=== PATIENT | male | born 1960 | race Caucasian/White ===

== ENCOUNTER 2019-07-17 10:14 | Emergency (ER) | payer SELFPAY ==
[2019-07-17] VITALS (8 sets, daily range): BP systolic 193–248; BP diastolic 111–168; PULSE 67–105; RESP 14–26; TEMP 36.6; O2SAT 95–100; BMI 22.8
--- NOTE | 2019-07-17 10:18 | EKG12_ITS ---
Test Reason : Blood Pressure : / mmHG Vent. Rate : 083 BPM Atrial Rate : 083 BPM P-R Int : 122 ms QRS Dur : 072 ms QT Int : 374 ms P-R-T Axes : 081 103 078 degrees QTc Int : 439 ms Normal sinus rhythm with sinus arrhythmia Biatrial enlargement Rightward axis Pulmonary disease pattern Abnormal ECG Confirmed by RENUKA MARCOS ([id number]), news assignment editor NISIH MILIAN ([id number]) on 07/21/2019 11:04:53 AM Referred By: RAMILA Confirmed By:RENUKA MARCOS
--- NOTE | 2019-07-17 10:18 | CT_ITS ---
STUDY: CT BRAIN WITHOUT CONTRAST REASON FOR EXAM: Male, 59 years old. Unresponsive RADIATION DOSAGE (If Supplied By Facility): CTDIvol = ( 44.99 ) mGy, DLP = ( 796.11 ) mGycm TECHNIQUE: Transaxial CT imaging of the brain was performed without administration of intravenous contrast material. Individualized dose optimization techniques were used for this CT. COMPARISON: No relevant priors. FINDINGS: Normal soft tissue structures. Normal calvarium. There is evidence of hydrocephalus. Intraventricular hemorrhage seen within the lateral ventricles as well as the third ventricle and the fourth ventricle as well. A small amount of acute blood is seen within the interhemispheric fissure anteriorly. Normal basal ganglia and thalami. Normal brainstem. Normal cerebellum. There is no intracranial hemorrhage. There are no findings of an acute ischemic infarction. Atherosclerotic calcification of the cavernous portions of the internal carotid arteries bilaterally. Normal visualized paranasal sinuses. CT/Brain/Head without Contrast IMPRESSION: Intraventricular hemorrhage as described causing hydrocephalus. I also suspect a small amount of blood in the interhemispheric fissure anteriorly. N.B. : The above information has been verbally conveyed by Yo Braden to Ryan Blankenship on 07/17/2019 10:38:47 (ET). Electronically Signed: Yo Braden, at 10:39 EDT , Service support ,
--- NOTE | 2019-07-17 10:18 | RAD_ITS ---
STUDY: X-RAY CHEST REASON FOR EXAM: Male, 59 years old. PT FOUND UNRESPONSIVE TECHNIQUE: Single AP portable view of the chest. COMPARISON: None. FINDINGS: An endotracheal tube is in situ with the tip at 5.6 cm proximal to the [place]. A nasogastric tube is seen with the tip below the left hemidiaphragm. EKG electrodes are seen. The lungs are clear and expanded. There is no demonstrated pleural abnormality. Normal size heart. Normal mediastinum and sam. Normal visualized pulmonary arteries. There is atherosclerotic tortuosity of the aortic arch and descending thoracic aorta. There are degenerative changes of the visualized thoracic spine. Normal visualized ribs, clavicles, and shoulders. There is no demonstrated abnormality of the visualized soft tissue structures of the upper abdomen. RAD/Chest 1 View IMPRESSION: The tip of the endotracheal tube is at 5.6 cm proximal to the [place]. The lungs are clear. Electronically Signed: Yo Braden, at 10:56 EDT , Service support ,
[2019-07-17] MEDS: Naloxone 2 MG/2 ML Syringe IV (10:23)
--- NOTE | 2019-07-17 10:23 | ED.VIS.GEN ---
History of Present Illness Chief Complaint: Unresponsive Narrative: Patient is unresponsive. Apparently left him around 9:30 AM came back 10 minutes later and patient was unresponsive. He arrives via EMS, the other history that I get from the is that he has been having easy bruising for the past year but has not seen a physician due to lack of health care. denies alcohol use. He does not take any medications. Past Medical History - Allergies and Home Meds Allergies/Adverse Reactions: Allergies No Known Allergies Allergy (Verified 07/17/19 10:25) Primary Care Physician: Shaw Jang MD [Primary Care Provider] - Past Medical History: None Review of Systems ROS: Unable to Obtain - Secondary to mental status changes Physical Exam Vital Signs/Narrative: Vital Signs Temp Pulse Resp BP Pulse Ox 07/17/19 10:16 98 F 81 16 198/119 H 97 General: Cachectic, - - Unresponsive Eyes: Perrl, Pale conjunctiva Neck: Supple Cardiovascular: Regular rate Respiratory: - - Coarse bilateral breath sounds Abdomen: Soft Extremities: Negative for: Edema Skin: - - Patient has multiple contusions hematomas, skin is quite friable Neurological: - - GCS is: Verbal 1, Eye 3, motor 5. Diagnostic/Tx/Re-eval Chest X-Ray - ED: 1 View, Read by ED Physician, - - Bilateral lungs appear normal normal mediastinum normal cardiac silhouette. ET tube is seen and is in place at the clavicular border. Interpreted by emergency doctor - Medical Decision Making Patient presents with acute mental status he was made a stroke team and sent to the CAT scan right away when he returned him his GCS was 7. He was not protecting his airway. He was found to have a large intraventricular bleed. At that time I intubated the patient. I discussed with [facility] neurosurgery patient will be transferred there. He was placed on a propofol drip. Keppra was given. We will manage his blood pressure. - Critical Care Time Critical care time (excluding procedures): 30-74 minutes - I attest that I spent 30 minutes of critical care time with the patient, this included direct patient care documentation discussion with neurosurgery planning transfer as multiple re-evaluations. Critical care time does not include any of the procedures I did. Procedures Procedure(s): Endotracheal intubation: This was an emergent procedure. 70 mg of rocuronium and 15 mg of etomidate were used. A 7.5 endotracheal tube was passed through the cords I used a 4 oh Mac blade. Post intubation x-ray shows good tube placement. Tube was also confirmed via auscultation, and color change. ED Disposition - Plan for ED Patient: Disposition: Home or Assisted Living Diagnosis: Intracranial bleed, Respiratory failure Referrals: Shaw Jang MD [Primary Care Provider] -
[2019-07-17 10:32] LABS: Absolute Lymphocyte Count 3.89 X10^3/uL (0.83-4.51); Absolute Neutrophil Count 15.6 X10^3/uL (2.0-7.7); Basophil# 0.06 X10^3/uL; Basophil% 0.3 % (0-1); Eosinophil# 0.04 X10^3/uL; Eosinophils% 0.2 % (0-5); Hematocrit 46.5 % (40-54); Lymphocyte # 3.89 X10^3/ul (4.0); Lymphocyte % 18.6 % (19-41); Mean Corp Hgb Conc 32.3 g/dL (32-36); Mean Corpuscular Hgb 27.3 pg (27.0-32.0); Mean Corpuscular Volume 84.5 fL (80-94); Mean Platelet Vol. 11.8 fl (6.2-12.0); Monocyte# 0.98 X10^3/uL; Monocyte% 4.7 % (0-10); NRBC Flagged by Analyzer 0 % (0-5); Neutrophil # 15.61 X10^3/uL (2.7-7.7); Neutrophil % 74.4 % (47-70); Platelet Count 222 K/mm3 (150-450); RBC Distribution Width CV 17.9 % (11.6-14.6); RBC Distribution Width SD 52.3 fl (35.1-43.9)
[2019-07-17] MEDS: Etomidate 20 MG/10 ML Vial 15 MG IV (10:34)
[2019-07-17] MEDS: Rocuronium Bromide 50 MG/5 ML Vial 70 MG IV (10:35)
[2019-07-17 10:40] LABS: International Normalized Ratio 0.9; Partial Thromboplast Time 23.5 Seconds (24.1-36.2); Prothrombin Time (Protime)PT. 12.4 SECONDS (11.7-14.9)
[2019-07-17 10:45] LABS: Anion Gap 7 (5-15); BUN 37 mg/dL (7-18); BUN/Creat Ratio 30.6 RATIO (10-20); Calcium,Total 8.6 mg/dL (8.5-10.1); Chloride 105 mmol/L (98-107); Creatinine, Serum 1.21 mg/dL (0.70-1.30); EST Glomerular Filtration Rate 65 mL/min (>60); Est Glom Filt Rate - Afr Amer 78 mL/min (>60); Estimated Creatinine Clearance 59.94 ml/min; Glucose 192 mg/dL (74-106); Sodium Level 137 mmol/L (136-145)
[2019-07-17] MEDS: Propofol 10MG/Ml 1,000 MG/100 ML Bottle 4 MG CONT INF (10:45)
--- NOTE | 2019-07-17 11:00 | CM.ED ---
SOCIAL WORK RESPONDED TO STROKE ALERT. PRESENT. EMOTIONAL SUPPORT PROVIDED THROUGHOUT. PATIENT BEING TRANSFERRED TO [facility]. REPORTS HAS FAMILY THAT WILL BE DRIVING HER TO THE HOSPITAL. Leo VALERO, LOCATION MANAGER, REPAIR CLERK.
[2019-07-17] MEDS: hydrALAZINE 20 MG/ML Vial 10 MG IV ×2 (11:10→11:21)
[2019-07-17] MEDS: Propofol 200 MG/20 ML Vial 40 MG IV BOLUS (11:21)
== END 2019-07-17 11:35 | disposition short-term general hospital (02) ==
PROVIDERS: Emergency Provider Emergency Medicine
DX: I61.5 Nontraumatic intracerebral hemorrhage, intraventricular (principal); J96.90 Respiratory failure, unspecified, unspecified whether with hypoxia or hypercapnia; R40.2420 Glasgow coma scale score 9-12, unspecified time
CPT/HCPCS: 31500; 51702; 70450; 71045; 80048; 84484; 85025; 85610; 85730; 93005; 94002; 96365; 96368; 99251; 99285; A4216; G0463